=== PATIENT | female | born 2000 | race Caucasian/White ===

== ENCOUNTER 2021-02-17 18:11 | Emergency (ER) | payer MEDICAID, BC ==
[2021-02-17] MEDS ORDERED: Sodium Chloride 0.9% 10 ML Syringe FLUSH PRN (19:16)
[2021-02-17] MEDS ORDERED: Ondansetron 4 MG/2 ML SDV IVPUSH ONE (19:16)
[2021-02-17] MEDS ORDERED: Sodium Chloride 0.9% 1,000 ML IV SCH (19:30)
[2021-02-17] MEDS ORDERED: LORazepam 1 MG Tab PO ONE (19:40)
[2021-02-17] MEDS ORDERED: LORazepam 1 MG Tab ONE (19:42)
--- NOTE | 2021-02-17 20:43 | EDM.PDOC ---
ED HPI GENERAL MEDICAL PROBLEM - General Chief Complaint: Abdominal Pain Stated Complaint: ABDOMINAL Time Seen by Provider: 02/17/21 18:57 Source of Information: Reports: Patient - History of Present Illness INITIAL COMMENTS - FREE TEXT/NARRATIVE: Pt is extremely vague but here for abd pain that she has had for "months", worse the last day or 2. Has had some diarrhea, nausea. No fever. No prior abd s urgeries. 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 Denies: Vomiting : Reports: No Symptoms Musculoskeletal: Reports: No Symptoms Skin: Reports: No Symptoms Neurological: Reports: No Symptoms Psychiatric: Reports: Anxiety ED EXAM, GI/ABD - Physical Exam Exam: See Below General Appearance: Alert, No Apparent Distress (at time of initial exam, than at the end of exam became very anxious, started hyperventilating) Head: Atraumatic Neck: Supple Respiratory/Chest: No Respiratory Distress, Lungs Clear, Normal Breath Sounds Cardiovascular: Regular Rate, Rhythm GI/Abdominal Exam: Soft, Other (very mild tenderness upper, mid and lower abd). No: Guarding, Rebound Back Exam: No: CVA Tenderness (L), CVA Tenderness (R) Neurological: Alert, Oriented, No Motor/Sensory Deficits Skin Exam: Warm, Dry, Normal Color Course - Vital Signs Last Recorded V/S: Last Vital Signs Temp 97.7 F 02/17/21 19:08 Pulse 89 02/17/21 19:08 Resp 20 02/17/21 19:08 BP 116/68 02/17/21 19:08 Pulse Ox 100 02/17/21 19:08 - Orders/Labs/Meds Orders: Active Orders 24 hr Category Date Time Status Peripheral IV Care [RC] . DIRECTED Care 02/17/21 19:16 Active Sodium Chloride 0.9% [Normal Saline] 1,000 ml Med 02/17/21 19:30 Active IV ONETIME Sodium Chloride 0.9% [Saline Flush] Med 02/17/21 19:16 Active 10 ml FLUSH ASDIRECTED PRN Peripheral IV Insertion Adult [OM.PC] Stat Oth 02/17/21 19:16 Ordered Medication Orders Sodium Chloride (Normal Saline) 1,000 mls @ 999 mls/hr IV ONETIME JUAN Sodium Chloride (Sodium Chloride 0.9% 10 Ml Syringe) 10 ml FLUSH ASDIRECTED PRN PRN Reason: Keep Vein Open Labs: Laboratory Tests 02/17/21 02/17/21 Range/Units 19:48 19:48 WBC 6.05 (3.98-10.04) K/mm3 RBC 5.19 (3.98-5.22) M/mm3 Hgb 14.7 (11.2-15.7) gm/dl Hct 44.4 (34.1-44.9) % MCV 85.5 (79.4-94.8) fl MCH 28.3 (25.6-32.2) pg MCHC 33.1 (32.2-35.5) g/dl RDW Std Deviation 40.1 (36.4-46.3) fL Plt Count 305 (182-369) K/mm3 MPV 9.8 (9.4-12.3) fl Neut % (Auto) 51.2 (34.0-71.1) % Lymph % (Auto) 38.3 (19.3-51.7) % [place] % (Auto) 8.8 (4.7-12.5) % Eos % (Auto) 1.0 (0.7-5.8) Baso % (Auto) 0.5 (0.1-1.2) % Neut # (Auto) 3.10 (1.56-6.13) K/mm3 Lymph # (Auto) 2.32 (1.18-3.74) K/mm3 [place] # (Auto) 0.53 H (0.24-0.36) K/mm3 Eos # (Auto) 0.06 (0.04-0.36) K/mm3 Baso # (Auto) 0.03 (0.01-0.08) K/mm3 Sodium 141 (136-145) mEq/L Potassium 3.4 L (3.5-5.1) mEq/L Chloride 103 (98-107) mEq/L Carbon Dioxide 27 (21-32) mEq/L Anion Gap 14.4 (5-15) BUN 8 (7-18) mg/dL Creatinine 0.8 (0.55-1.02) mg/dL Est Cr Clr Drug Dosing TNP Estimated GFR (MDRD) > 60 (>60) mL/min BUN/Creatinine Ratio 10.0 L (14-18) Glucose 156 H (70-99) mg/dL Calcium 9.1 (8.5-10.1) mg/dL Total Bilirubin 0.7 (0.2-1.0) mg/dL AST 24 (15-37) U/L ALT 31 (14-59) U/L Alkaline Phosphatase 79 (46-116) U/L C-Reactive Protein <0.2 (<1.0) mg/dL Total Protein 7.9 (6.4-8.2) g/dl Albumin 4.1 (3.4-5.0) g/dl Globulin 3.8 gm/dL Albumin/Globulin Ratio 1.1 (1-2) Meds: Medications Generic Name Dose Route Start Last Admin Trade Name Freq PRN Reason Stop Dose Admin Sodium Chloride 1,000 mls @ 999 mls/hr 02/17/21 19:30 Normal Saline IV ONETIME JUAN Sodium Chloride 10 ml 02/17/21 19:16 Sodium Chloride 0.9% 10 Ml Syringe FLUSH ASDIRECTED PRN Keep Vein Open Discontinued Medications Generic Name Dose Route Start Last Admin Trade Name Freq PRN Reason Stop Dose Admin Lorazepam 1 mg 02/17/21 19:40 02/17/21 19:45 Lorazepam 1 Mg Tab PO 02/17/21 19:41 1 mg ONETIME ONE Administration Lorazepam Confirm 02/17/21 19:42 02/17/21 19:45 Lorazepam 1 Mg Tab Administered 02/17/21 19:43 Not Given Dose 1 mg .ROUTE .STK-MED ONE Ondansetron HCl 4 mg 02/17/21 19:16 Ondansetron 4 Mg/2 Ml Sdv IVPUSH 02/17/21 19:17 ONETIME ONE - Re-Assessments/Exams Free Text/Narrative Re-Assessment/Exam: 02/17/21 20:38 WBC normal, CRP 0.2. Chem. are good. Pt refused IV fluid and IV zofran. I have offered ODT zofran, she refused, states she has nausea medication at home. Discharge instr. as documented. we did give ativan 1 mg PO due to hyperventilation that started during time of exam. That did help her relax. No active vomiting or diarrhea while here in the ED. NAD at time of discharge. Departure - Departure Time of Disposition: 20:43 Disposition: Home, Self-Care 01 Condition: Fair Clinical Impression: Nausea Abdominal pain Qualifiers: Abdominal location: generalized Qualified Code(s): R10.84 - Generalized abdominal pain Diarrhea Qualifiers: Diarrhea type: unspecified type Qualified Code(s): R19.7 - Diarrhea, unspecified - Discharge Information Instructions: Abdominal Pain, Adult, [id number], Nausea, Adult, [id number], Diarrhea, Adult, [id number] Referrals: PCP,None [Primary Care Provider] - Forms: ED Department Discharge Additional Instructions: Clear liquids until noon tomorrow, take your nausea medication as previously prescribed. Your labs today are normal. See your clinic provider this next week. Call Friday AM for appointment. You have been given ativan 1 mg orally for anxiety. No driving until tomorrow afternoon due to sedative effect. Sepsis Event Note (ED) - Focused Exam Vital Signs: Vital Signs Temp Pulse Resp BP Pulse Ox 02/17/21 19:08 97.7 F 89 20 116/68 100 - My Orders Last 24 Hours: My Active Orders 02/17/21 19:16 Peripheral IV Care [RC] . DIRECTED Sodium Chloride 0.9% [Saline Flush] 10 ml FLUSH ASDIRECTED PRN Peripheral IV Insertion Adult [OM.PC] Stat 02/17/21 19:30 Sodium Chloride 0.9% [Normal Saline] 1,000 ml IV ONETIME - Assessment/Plan Last 24 Hours: My Active Orders 02/17/21 19:16 Peripheral IV Care [RC] . DIRECTED Sodium Chloride 0.9% [Saline Flush] 10 ml FLUSH ASDIRECTED PRN Peripheral IV Insertion Adult [OM.PC] Stat 02/17/21 19:30 Sodium Chloride 0.9% [Normal Saline] 1,000 ml IV ONETIME
== END 2021-02-17 20:51 | disposition home or self-care (01) ==
LOC: JD.ED 18:11
DX: R10.84 Generalized abdominal pain (principal); R19.7 Diarrhea, unspecified; R11.0 Nausea; J45.909 Unspecified asthma, uncomplicated; Z88.5 Allergy status to narcotic agent
CPT/HCPCS: 36415; 80053; 85025; 86140; 99284; A9270

== ENCOUNTER 2021-05-22 18:34 | Emergency (ER) | payer BC, MEDICAID ==
[2021-05-22] MEDS ORDERED: Sodium Chloride 0.9% 10 ML Syringe FLUSH PRN (19:00)
[2021-05-22] MEDS ORDERED: Acetaminophen 325 MG Tab PO ONE (21:15)
== END 2021-05-22 21:31 | disposition home or self-care (01) ==
LOC: JD.ED 18:34
DX: R10.30 Lower abdominal pain, unspecified (principal); Z88.5 Allergy status to narcotic agent
CPT/HCPCS: 36415; 76817; 84702; 85025; 86900; 86901; 99284; A9270

== ENCOUNTER 2021-06-24 01:28 | Emergency (ER) | payer BC, MEDICAID | END 2021-06-24 06:00 | disposition home or self-care (01) | LOC: JD.ED 01:28 | DX: O20.0 Threatened abortion (principal); Z88.5 Allergy status to narcotic agent; Z3A.01 Less than 8 weeks gestation of pregnancy | CPT/HCPCS: 36415; 80053; 81003; 84702; 85025; 85610; 85730; 99283; 99284 ==

== ENCOUNTER 2025-02-16 08:55 | Day surgery (SDC) | payer BC ==
[~2025-02-16 08:55] MED LIST: Ondansetron 4 MG/2 ML SDV IVPUSH PRN; Sodium Chloride 0.9% 10 ML Syringe FLUSH PRN; Sodium Chloride 0.9% 10 ML Syringe FLUSH SCH; fentaNYL 100 MCG/2 ML SDV IVPUSH PRN
[2025-02-16] MEDS ORDERED: Ropivacaine 0.5% 5 MG/ML 30 ML SDV ONE (09:21)
[2025-02-16] MEDS ORDERED: Midazolam 1 MG/ML 2 ML SDV ONE (09:21)
[2025-02-16] MEDS ORDERED: dexmedeTOMIDine HCl 200 MCG/2 ML SDV ONE (09:21)
[2025-02-16] MEDS ORDERED: fentaNYL 100 MCG/2 ML SDV ONE (09:21)
[2025-02-16] MEDS ORDERED: Dexamethasone 4 MG/ML 5 ML MDV ONE (09:22)
[2025-02-16] MEDS: Lactated Ringers 1,000 ML IV SCH (09:30)
[2025-02-16] MEDS ORDERED: Propofol 200 MG/20 ML SDV ONE (10:20)
== END 2025-02-16 12:45 | disposition home or self-care (01) ==
LOC: JD.SDS 08:55
PROVIDERS: ATTEND Orthopaedic Surgery
DX: T84.84XA Pain due to internal orthopedic prosthetic devices, implants and grafts, initial encounter (principal); J45.909 Unspecified asthma, uncomplicated; Z88.5 Allergy status to narcotic agent; Z91.09 Other allergy status, other than to drugs and biological substances; Z79.82 Long term (current) use of aspirin; Y83.1 Surgical operation with implant of artificial internal device as the cause of abnormal reaction of the patient, or of later complication, without mention of misadventure at the time of the procedure
CPT/HCPCS: 20680; 64445; 76000; 81025; J0690; J1100; J2250; J2704; J2795; J3010; J7120; 01480; J0665